=== PATIENT | female | born 1965 | race Caucasian/White ===

== ENCOUNTER 2016-06-02 06:14 | Day surgery (SDC) | payer OTHER ==
[2016-05-30 11:15] VITALS: BMI 57.1
[2016-06-02] MEDS ORDERED: BENZOCAINE SPRAY 100 APPLIC/CAN TOPICAL PRN (06:45)
[2016-06-02] MEDS ORDERED: LACTATED RINGERS 1,000 ML IV SCH (06:45)
[2016-06-02] MEDS ORDERED: DEXAMETHASONE SOD PHOSPHATE 10 MG/ML 1 ML VIAL IV ONE (06:45)
[2016-06-02] MEDS ORDERED: ONDANSETRON 4 MG/2 ML VIAL IVP ONE (06:45)
[2016-06-02] MEDS ORDERED: MIDAZOLAM 2 MG/2 ML VIAL IV PRN (06:45)
[2016-06-02] MEDS ORDERED: SCOPOLAMINE 1.5MG/72HR PATCH TRANSDERM ONE (06:45)
[2016-06-02] MEDS ORDERED: SODIUM CHLORIDE 0.9% 1,000 ML IV SCH ×2 (06:45→08:00)
[2016-06-02] MEDS ORDERED: HYDROmorphone 1 MG/ML 1 ML SYRINGE IVP PRN (06:45)
[2016-06-02] MEDS ORDERED: LIDOCAINE 1% INJ 10MG/ML (20 ML MDV) ONE (07:44)
[2016-06-02] MEDS ORDERED: PROPOFOL 10 MG/ML 20 ML VIAL IV ONE (07:44)
[2016-06-02 08:14] VITALS: RESP 16
--- NOTE | 2016-06-02 08:20 | ECHOT ---
DATE OF SERVICE: PROCEDURE: Transesophageal echocardiogram. INDICATION: Chronic persistent atrial fibrillation. PROCEDURE NOTE: After obtaining informed consent, transesophageal echocardiogram was performed in the left lateral position using an Omniplane probe. Local and IV sedation were obtained by the pipe and test supervisor. The patient's O2 saturations dropped during the procedure so obtained the minimal information we needed and took the probe out. FINDINGS: 1. There is no intracardiac thrombus within the left atrial appendage, left atrium, right atrium, left ventricle or right ventricle. 2. Left ventricle has normal size and systolic function. 3. Mitral valve shows mild to moderate central mitral regurgitation. 4. Tricuspid valve shows mild tricuspid regurgitation. 5. Aortic valve is a 3 leaflet valve. 6. Interatrial septum was not interrogated. 7. Aortic root was not well visualized. CONCLUSIONS: 1. No intracardiac thrombus. 2. Normal left ventricular function. 3. Mild to moderate mitral regurgitation. PLAN: Patient will undergo cardioversion.
--- NOTE | 2016-06-02 08:22 | CE ---
DATE OF SERVICE: CARDIOVERSION INDICATION: Persistent atrial fibrillation. PROCEDURE NOTE: After obtaining informed consent, the patient underwent electrical cardioversion with one 360 joules of synchronized DC shock. She converted to sinus rhythm and stayed in sinus rhythm. The patient has been anticoagulated with Xarelto. She is on atenolol which I am going to stop on discharge because heart rate is in the 60s. We may resume at 25 mg daily.
[2016-06-02 09:15] VITALS: PULSE 74
[2016-06-02 09:19] VITALS: BP 114/64; TEMP 98
== END 2016-06-02 09:31 | disposition home or self-care (01) ==
LOC: CATHCVL 06:14
PROVIDERS: ATTEND Internal Medicine Cardiovascular Disease
DX: I48.1 Persistent atrial fibrillation (principal); I08.1 Rheumatic disorders of both mitral and tricuspid valves; I11.0 Hypertensive heart disease with heart failure; I50.31 Acute diastolic (congestive) heart failure; Z79.01 Long term (current) use of anticoagulants; Z79.899 Other long term (current) drug therapy; Z82.49 Family history of ischemic heart disease and other diseases of the circulatory system; Z98.84 Bariatric surgery status
CPT/HCPCS: 93312; 93320; 93005; 93325; 92960; J2001; J2704; 99152

== ENCOUNTER 2016-10-10 06:13 | Day surgery (SDC) | payer OTHER ==
[2016-10-10] MEDS: SODIUM CHLORIDE 0.9% 1,000 ML IV SCH (07:35)
[2016-10-10] MEDS ORDERED: SUCCINYLCHOLINE CHLORIDE VIAL 200 MG/10 ML VIAL IV ONE (07:38)
[2016-10-10] MEDS ORDERED: ATROPINE SULFATE 0.4 MG/ML 1 ML VIAL ONE (07:38)
[2016-10-10] MEDS ORDERED: PROPOFOL 10 MG/ML 20 ML VIAL IV ONE (07:38)
[2016-10-10] MEDS ORDERED: PROTAMINE SULFATE 10 MG/ML 5 ML VIAL IV ONE ×2 (07:38→11:00)
[2016-10-10] MEDS ORDERED: fentaNYL (PF) 50 MCG/ML 2 ML AMP ONE (07:38)
[2016-10-10] MEDS ORDERED: MIDAZOLAM 2 MG/2 ML VIAL ONE (07:38)
[2016-10-10] MEDS ORDERED: PHENYLEPHRINE-0.9% NACL SYG 1 MG/10 ML SYRINGE ONE (07:38)
[2016-10-10 07:44] LABS: Calcium 9.5 mg/dL (8.4-10.2)
[2016-10-10 07:45] LABS: Basophils % (A) 1 %; CH 30.2; CHCM 34.3; Eosinophils # (A) 0.2 k/uL (0-0.7); Eosinophils % (A) 2 %; HDW 2.59; Luc # (Auto) 0.19; Luc % (Auto) 2; Lymphocytes # (A) 1.5 k/uL (1.0-4.8); Lymphocytes % (A) 18 %; MCH 30.2 pg (25.0-35.0); MCHC 34.2 g/dL (31.0-37.0); MCV 88.4 fL (80.0-100.0); Mean Platelet Volume 7.1; Monocytes # (A) 0.5 k/uL (0-1.0); Monocytes % (A) 6 %; Neutrophils # (A) 6.3 k/uL (1.3-7.7); Neutrophils % (A) 72 %; RBC 4.98 m/uL (3.80-5.40); RDW 14.6 % (11.5-15.5); WBC 8.7 k/uL (3.8-10.6); WBC (Perox) 8.63
[2016-10-10] MEDS ORDERED: LIDOCAINE 2% INJ 20 MG/ML SQ ONE (08:42)
[2016-10-10] MEDS ORDERED: HEPARIN SODIUM,PORCINE/D5W PMX 25,000 UNIT in DEXTROSE/WATER 1 500ML.BAG IV ONE (08:59)
[2016-10-10] MEDS ORDERED: IOHEXOL 350 MG/ML 100 ML BOTTLE INJ ONE (10:40)
[2016-10-10] MEDS ORDERED: ACETAMINOPHEN TAB 325 MG TAB PO PRN (11:02)
[2016-10-10] MEDS ORDERED: HYDROcodone/APAP 5-325MG 1 EACH TAB PO PRN (11:02)
[2016-10-10] MEDS ORDERED: ACETAMINOPHEN IV (For NPO) 1,000 MG/100 ML VIAL IVPB ONE (12:23)
[2016-10-10] MEDS ORDERED: BENZOCAINE/MENTHOL LOZENG 1 EACH LOZENGE MUCOUS MEM PRN (15:05)
--- NOTE | 2016-10-10 16:10 | CE ---
DATE OF SERVICE: This is a 51-year-old female with morbid obesity and persistent atrial fibrillation who has failed amiodarone who complains of tiredness and fatigue and shortness of breath on exertion. She was brought in for cryoablation. She was in A. fib at the time of the study. Patient was brought to the EP lab in a fasting state. Written informed consent was obtained prior to the procedure. Procedure is performed under general anesthesia. No muscle relaxants were given after the initial use in order to monitor phrenic nerve stimulation. The patient was prepped and draped as per protocol. A full cryo set up with standard preparation of the cryo 2 was performed. Femoral access was obtained in the right and left groins with 2 venous sheaths in the right femoral vein, 1 venous sheath in the left femoral vein. Diagnostic catheters were placed in the high right atrium in the SCC area for phrenic nerve stimulation for atrial pacing, His bundle area in the RV and coronary sinus. Later intracardiac echo catheter was placed. Long sheath was placed in the right atrium. Left and right transseptal catheterization was performed under intracardiac echo guidance. There was no intracardiac mass or thrombus. IV heparin was used. ACT maintained about 300. Later the long sheath was exchanged for the keeley sheath and balloon was placed in the left atrium. Baseline measurements were as follows: AH interval 99 ms, HV interval 60 ms, QRS 112 ms, QT 436 ms, right atrial pressure 11/9 mmHg, LA pressure 16 x 6 mmHg. Cryoablation was performed first in the left superior vein and then in the left inferior followed by the right superior and then right inferior veins. Two lesions were placed in the left superior vein for 3 minutes, each with good parameters. With the first cryo lesion -30 degrees Celsius achieved at 33 seconds, -40 degrees Celsius achieved at 57 seconds, minimal temperature achieved -47 degrees Celsius. ( ) time 10.5 seconds. Second lesion 3 minute lesion set was applied with excellent parameters and the vein was completely isolated. Next, the left inferior pulmonary vein was isolated. The first lesion for 150 seconds, the second for 180 seconds with excellent parameters including -40 degrees Celsius at 58 seconds, followed by -40 degrees Celsius at 60 seconds. The vein was completely isolated. The ( ) time was greater than 10 seconds of both freezings. The right-sided veins were then isolate sequentially, superior followed by inferior. During phrenic nerve stimulation there was no evidence of phrenic nerve injury either during or after the lesions sets. Both veins were completely isolated. Following that, entrance block was checked for all 4 pulmonary veins and all 4 pulmonary veins had complete isolation. However, the patient remained in atrial fibrillation, but there was definite organization of the tachycardia 2 about 320 to 340 ms with pulmonary vein isolation. Therefore, she underwent electrical cardioversion successfully to sinus rhythm. Sinus bradycardia was noted within 45 to 50 beats a minute. Following that, EP testing was performed, both on and off drugs. IV atropine was infused on several occasions. VA Wenckebach block greater than 700 ms, sinus node recovery times were prolonged at 1713 and 1781 ms. AV node Wenckebach block 590 ms from the coronary sinus and from the high right atrium 600 ms. Following drug infusion, the AV node Wenckebach block improved to 570 ms. No arrhythmias were induced with atrial CS pacing. At the end of the procedure the Achieve catheter was once again used to check entrance block. Stimulation was performed to confirm diaphragmatic stimulation and intact phrenic nerve was confirmed. The patient was extubated. Heparin was reversed and venous sheaths were removed. Hemostasis was assured. RESULT: 1. Successful isolation of the pulmonary veins using cryoablation with complete entrance block in all 4 veins. 2. Organization of atrial fibrillation through tachycardia cycle length of about 320-340 ms. Electrical cardioversion performed thereafter. PLAN: Reduce flecainide to 50 mg twice daily. Reduce atenolol to 12.5 mg p.o. daily. Continue anticoagulation.
--- NOTE | 2016-10-10 16:38 | LTR ---
October 10, 2016 RE: Kimberly Aguilar Patrice Dear Dr. Watson: I had the pleasure of seeing Kimberly Aguilar in electrophysiology follow-up. As you know, Kimberly has morbid obesity with persistent atrial fibrillation, which carries a low success rate for maintaining sinus rhythm. She underwent successful ablation of the pulmonary veins with organization of atrial tachycardia, organization of atrial fibrillation, extrapulmonary ablation was not performed at this time. She was electrically cardioverted, start on flecainide. I have started her on 50 mg twice daily and if she can tolerate, we will increase to 200 mg twice as long as heart rate is within normal limits. I also reduced her atenolol dose to 12.5 mg p.o. daily. She will continue anticoagulation. Thank you for entrusting me with the care of your patient. Warm regards. Sincerely, JOSEFINA MODI MD
[2016-10-10] MEDS ORDERED: ACETAMINOPHEN IV (For NPO) 1,000 MG in EMPTY BAG 1 BAG IVPB ONE (17:00)
[2016-10-10 18:50] VITALS: BMI 57.9
[2016-10-10] MEDS ORDERED: RIVAROXABAN 10 MG TAB PO SCH (21:00)
[2016-10-10] MEDS ORDERED: FLECAINIDE 50 MG TAB PO SCH (21:00)
[2016-10-11] MEDS: SODIUM CHLORIDE 0.9% 1,000 ML IV SCH (05:31)
[2016-10-11] MEDS ORDERED: ATENOLOL 12.5 MG TAB PO SCH (09:00)
[2016-10-11] MEDS ORDERED: MAGNESIUM OXIDE 400 MG TAB PO SCH (09:00)
[2016-10-11] MEDS ORDERED: LISINOPRIL 10 MG TAB PO SCH (09:00)
[2016-10-11] MEDS ORDERED: buPROPion XL 300 MG TAB.ER.24H PO SCH (09:00)
[2016-10-11] MEDS ORDERED: FUROSEMIDE 40 MG TAB PO SCH (09:00)
[2016-10-11] MEDS ORDERED: FLECAINIDE 50 MG TAB PO SCH (09:00)
--- NOTE | 2016-10-11 09:15 | PN ---
Kimberly Aguilar is a 51-year-old female with atrial fibrillation. She underwent cryoablation of the pulmonary veins followed by electrical cardioversion with organized atrial fibrillation, residual. She has already been treated with flecainide and she will continue flecainide at this time. Yesterday during the ablation, heart rate was in 40s and 50s and therefore flecainide was held. Today this morning we will start it again, but we will lower the dose of atenolol to 12.5 mg p.o. daily. She denies any chest discomfort, dizziness, lightheadedness, swallowing problems. Abdomen is soft, nontender. Heart sounds are normal. Breath sounds are normal. Vitals are stable. 111/68 mmHg. She is afebrile, 97.5 degrees Fahrenheit. IMPRESSION: 1. Persistent atrial fibrillation, status post cryoablation of the pulmonary veins. 2. Electrical cardioversion for organized atrial fibrillation, status post cardioversion. 3. Morbid obesity. SUGGEST: Continue anticoagulation. Continue flecainide 100 mg twice daily. Reduce the dose of atenolol to 12.5 mg p.o. daily and follow with Dr. Tovar in about 5 to 7 days. She will be discharged home by around 6 p.m. in the evening if she is stable.
[2016-10-11 11:51] VITALS: RESP 16
[2016-10-11 15:25] VITALS: BP 119/66; PULSE 66; TEMP 96.9
== END 2016-10-11 18:40 | disposition home or self-care (01) ==
LOC: CATHEP 06:13 → 6SEL 11:08 → CATHEP 10-11 18:40
PROVIDERS: ATTEND Internal Medicine Clinical Cardiac Electrophysiology
DX: I48.1 Persistent atrial fibrillation (principal); E66.01 Morbid (severe) obesity due to excess calories; Z68.43 Body mass index [BMI] 50.0-59.9, adult; I10 Essential (primary) hypertension; I44.30 Unspecified atrioventricular block; R94.31 Abnormal electrocardiogram [ECG] [EKG]; Z98.84 Bariatric surgery status; Z82.49 Family history of ischemic heart disease and other diseases of the circulatory system; Z79.01 Long term (current) use of anticoagulants; Z79.899 Other long term (current) drug therapy
CPT/HCPCS: 92960; 93662; 93656; 85347; 80048; 85025; C1769 ×3; C1894 ×3; C1730 ×3; C1759; C1893; C1733; C1766; J2001; J2250; J0330; J2720; J0461; Q9967; J1644; J3010; J0131; J2370; J2704

== ENCOUNTER 2017-11-16 00:03 | Emergency (ER) | payer OTHER ==
--- NOTE | 2017-11-16 11:14 | XR ---
EXAMINATION TYPE: XR chest 2V DATE OF EXAM: 11/16/2017 COMPARISON: NONE HISTORY: Shortness of breath TECHNIQUE: Frontal and lateral views of the chest are obtained. FINDINGS: Scattered senescent parenchymal changes noted. Hyperinflation compatible with COPD. No evidence for infiltrate. No evidence for atelectasis. Heart size is stable. Mediastinal structures are stable and grossly unremarkable. No evidence for hilar prominence. Degenerative changes dorsal spine. IMPRESSION: 1. No evidence for acute pulmonary disease.
--- NOTE | 2017-11-16 11:15 | XR ---
EXAMINATION TYPE: XR cervical spine comp DATE OF EXAM: 11/16/2017 CLINICAL HISTORY: pain COMPARISON: NONE TECHNIQUE: Frontal, lateral, oblique, swimmers, and open mouth view of the cervical spine are obtaine d. FINDINGS: The cervical spine is visualized in its entirety from C1 thru the top of T1 level. It is s atisfactory in alignment without evidence of acute fracture or dislocation. The pre-vertebral soft t issue appears within normal limits. Disc spaces are well preserved. The C1-C2 articulation is unremar kable on the open mouth view. The oblique images are within normal limits. IMPRESSION: No acute fracture or dislocation is seen in the cervical spine.ICD 10 NO FRACTURE, INITI AL EVALUATION
== END 2017-11-16 01:45 | disposition home or self-care (01) ==
LOC: EC 00:03
DX: S20.211A Contusion of right front wall of thorax, initial encounter (principal); M54.2 Cervicalgia; V89.2XXA Person injured in unspecified motor-vehicle accident, traffic, initial encounter
CPT/HCPCS: 71046; 72050; 99284

== ENCOUNTER 2018-07-16 19:17 | Inpatient (IN) | payer OTHER ==
[2018-07-16] MEDS ORDERED: MORPHINE SULFATE 4 MG/ML SYRINGE IVP PRN (20:48)
[2018-07-16] MEDS ORDERED: ONDANSETRON 4 MG/2 ML VIAL IVP STA (20:49)
[2018-07-16] MEDS ORDERED: SODIUM CHLORIDE 0.9% 1,000 ML IV ONE (20:49)
--- NOTE | 2018-07-16 20:53 | ED ---
Abdominal Pain HPI - General Chief Complaint: Abdominal Pain Stated Complaint: Vomiting/abd pain Time Seen by Provider: 07/16/18 20:36 Source: patient Mode of arrival: ambulatory Limitations: no limitations - History of Present Illness Initial Comments: This is a 53-year-old female who presents with a chief complaint of abdominal pain. This started at 6 AM. She has a history of a lap band. Patient cannot identify an inciting incident though she states she ate sauerkraut and divorce yesterday. Her last bowel movement was yesterday. There are no aggravating or alleviating factors. Patient says that her timing is intermittent. - Related Data Home Medications Medication Instructions Recorded Confirmed Magnesium Oxide [Mag-Ox] 250 mg PO DAILY 05/30/16 07/16/18 Lisinopril [Zestril] 10 mg PO DAILY 06/02/16 07/16/18 Atenolol [Tenormin] 12.5 mg PO DAILY 10/05/16 07/16/18 Rivaroxaban [Xarelto] 20 mg PO HS 10/05/16 07/16/18 buPROPion HCL [Wellbutrin XL] 300 mg PO DAILY 10/05/16 07/16/18 Fluticasone Nasal Mobile [Flonase 1 spray EA NOSTRIL DAILY PRN 07/16/18 07/16/18 Nasal Mobile] Ibuprofen [Advil] 200 mg PO Q6HR PRN 07/16/18 07/16/18 Loratadine [Claritin] 10 mg PO DAILY PRN 07/16/18 07/16/18 Multivitamins, Thera [Multivitamin 1 tab PO DAILY 07/16/18 07/16/18 (formulary)] Previous Rx's Medication Instructions Recorded Furosemide [Lasix] 40 mg PO DAILY #30 tablet 04/16/16 Potassium Chloride ER [K-Dur 10] 10 meq PO DAILY #30 tab 04/16/16 Allergies Allergy/AdvReac Type Severity Reaction Status Date / Time No Known Allergies Allergy Verified 07/16/18 22:05 Review of Systems ROS Statement: Those systems with pertinent positive or pertinent negative responses have been documented in the HPI. ROS Other: All systems not noted in ROS Statement are negative. Gastrointestinal: Reports: abdominal pain, nausea Past Medical History Past Medical History: Atrial Fibrillation, Hypertension, Thyroid Disorder Additional Past Medical History / Comment(s): STATES SOB., LAP BAND., SEE CARDIOLOGY H & P. History of Any Multi-Drug Resistant Organisms: None Reported Past Surgical History: Bariatric Surgery, Cholecystectomy, Orthopedic Surgery Additional Past Surgical History / Comment(s): Left ankle tendon and fusion; Left knee arthroscopy; ectopic - left ovary removed, LAP BAND (2003), right ankle surgery Past Anesthesia/Blood Transfusion Reactions: No Reported Reaction Past Psychological History: No Psychological Hx Reported Smoking Status: Never smoker Past Alcohol Use History: None Reported Past Drug Use History: None Reported - Past Family History Mother Family Medical History: No Reported History General Exam Limitations: no limitations General appearance: alert, in no apparent distress Head exam: Present: atraumatic, normocephalic Eye exam: Present: normal appearance ENT exam: Present: normal exam Neck exam: Present: normal inspection Respiratory exam: Present: normal lung sounds bilaterally. Absent: respiratory distress, wheezes Cardiovascular Exam: Present: regular rate, normal rhythm GI/Abdominal exam: Present: soft, tenderness (Tenderness to palpation along the left side of the abdomen.). Absent: distended Rectal exam: Present: deferred Extremities exam: Present: normal inspection Back exam: Present: normal inspection Neurological exam: Present: alert, oriented X3 Psychiatric exam: Present: normal affect, normal mood Skin exam: Present: warm, dry, intact Course Vital Signs 07/16/18 07/16/18 07/16/18 19:50 21:37 22:36 Temperature 98.5 F Pulse Rate 74 71 69 Respiratory 16 18 18 Rate Blood Pressure 134/76 133/91 133/91 O2 Sat by Pulse 95 99 95 Oximetry Medical Decision Making - Medical Decision Making Patient presents with a chief complaint of abdominal pain. On initial evaluation, vitals are stable, patient is in no acute distress. Patient reevaluated at 11 including liver profile and lipase. She'll be sent for a computed tomography scan of the abdomen and pelvis with IV contrast. 10:48 PM Laboratory evaluation this patient grossly unremarkable, lactate is negative. A computed tomography scan of the abdomen and pelvis shows a small bowel obstruction with transition point in the mid lower abdomen. The results were discussed with the patient, she is agreeable to an NG tube and admission. Case discussed with Dr. Oseguera who agrees to admit this patient primarily. At this time, radiology images aren't available to myself, official interpretation by radiologist was faxed, and placed on the chart. - Lab Data Result diagrams: 07/16/18 21:44 07/16/18 21:44 Lab Results 07/16/18 07/16/18 07/16/18 Range/Units 21:44 21:44 21:44 WBC 10.4 (3.8-10.6) k/uL RBC 5.35 (3.80-5.40) m/uL Hgb 14.6 (11.4-16.0) gm/dL Hct 46.3 H (34.0-46.0) % MCV 86.4 (80.0-100.0) fL MCH 27.2 (25.0-35.0) pg MCHC 31.5 (31.0-37.0) g/dL RDW 14.2 (11.5-15.5) % Plt Count 232 (150-450) k/uL Neutrophils % 87 % Lymphocytes % 8 % Monocytes % 3 % Eosinophils % 2 % Basophils % 0 % Neutrophils # 9.1 H (1.3-7.7) k/uL Lymphocytes # 0.8 L (1.0-4.8) k/uL Monocytes # 0.3 (0-1.0) k/uL Eosinophils # 0.2 (0-0.7) k/uL Basophils # 0.1 (0-0.2) k/uL Sodium 138 (137-145) mmol/L Potassium 4.6 (3.5-5.1) mmol/L Chloride 106 (98-107) mmol/L Carbon Dioxide 24 (22-30) mmol/L Anion Gap 8 mmol/L BUN 23 H (7-17) mg/dL Creatinine 0.84 (0.52-1.04) mg/dL Est GFR (CKD-EPI)AfAm >90 (>60 ml/min/1.73 sqM) Est GFR (CKD-EPI)NonAf 78 (>60 ml/min/1.73 sqM) Glucose 137 H (74-99) mg/dL Plasma Lactic Acid Collin 1.1 (0.7-2.0) mmol/L Calcium 10.3 H (8.4-10.2) mg/dL Total Bilirubin 0.9 (0.2-1.3) mg/dL AST 23 (14-36) U/L ALT 20 (9-52) U/L Alkaline Phosphatase 113 (38-126) U/L Total Protein 7.2 (6.3-8.2) g/dL Albumin 4.2 (3.5-5.0) g/dL Lipase 45 (23-300) U/L Disposition Clinical Impression: Small bowel obstruction Disposition: ADMITTED IP TO THIS [facility] Condition: Good Is patient prescribed a controlled substance at d/c from ED?: No Referrals: Leia Winters MD [Primary Care Provider] - 1-2 days Decision to Admit Reason: Admit from EC - Out of Hospital Transfer - Req. Specs Out of Hospital Transfer - Requested Specifics: Other Non-Acute
--- NOTE | 2018-07-16 21:52 | XR ---
EXAMINATION TYPE: XR abdomen acute w cxr, 4 views DATE OF EXAM: 07/16/2018 COMPARISON: NONE HISTORY: Pain TECHNIQUE: 4V FINDINGS: Partial left lower lobe airlessness noted, partially silhouetting the left hemidiaphragm; atelectasis versus bronchopneumonia can be delineated clinically. There is no evidence for pneumoperitoneum. The bowel gas pattern is unremarkable as there is air throughout nondilated small and large bowel. G astric banding and catheter appear intact. No sizeable air fluid levels. No mass effects are seen. No unusual calcifications. IMPRESSION: 1. No acute abdominopelvic process. 2. Mild partial left lower lobe airlessness.
[2018-07-16 21:55] LABS: Basophils # (A) 0.1 k/uL (0-0.2); Basophils % (A) 0 %; Eosinophils # (A) 0.2 k/uL (0-0.7); Eosinophils % (A) 2 %; HCT 46.3 % (34.0-46.0); HGB 14.6 gm/dL (11.4-16.0); Lymphocytes # (A) 0.8 k/uL (1.0-4.8); Lymphocytes % (A) 8 %; MCH 27.2 pg (25.0-35.0); MCHC 31.5 g/dL (31.0-37.0); MCV 86.4 fL (80.0-100.0); Mean Platelet Volume 6.8; Monocytes # (A) 0.3 k/uL (0-1.0); Monocytes % (A) 3 %; Neutrophils # (A) 9.1 k/uL (1.3-7.7); Neutrophils % (A) 87 %; Platelet Count 232 k/uL (150-450); RBC 5.35 m/uL (3.80-5.40); RDW 14.2 % (11.5-15.5); WBC 10.4 k/uL (3.8-10.6)
[2018-07-16 22:03] LABS: ALT 20 U/L (9-52); AST 23 U/L (14-36); Albumin 4.2 g/dL (3.5-5.0); Alkaline Phosphatase 113 U/L (38-126); Anion Gap 8 mmol/L; Blood Urea Nitrogen 23 mg/dL (7-17); Calcium 10.3 mg/dL (8.4-10.2); Carbon Dioxide 24 mmol/L (22-30); Chloride 106 mmol/L (98-107); Glucose 137 mg/dL (74-99); Lipase 45 U/L (23-300); Potassium 4.6 mmol/L (3.5-5.1); Sodium 138 mmol/L (137-145); Total Bilirubin 0.9 mg/dL (0.2-1.3); Total Protein 7.2 g/dL (6.3-8.2)
[2018-07-16] MEDS ORDERED: NALOXONE 0.4 MG/ML 1 ML VIAL IV PRN (22:49)
[2018-07-16] MEDS ORDERED: HYDROmorphone 1 MG/ML 1 ML SYRINGE IVP PRN (22:49)
[2018-07-16] MEDS ORDERED: SODIUM CHLORIDE 0.9% 1,000 ML IV SCH (23:00)
[2018-07-17 04:15] LABS: Glucose,Whole Blood 116 mg/dL (75-99)
[2018-07-17] MEDS ORDERED: ACETAMINOPHEN IV (For NPO) 1,000 MG in EMPTY BAG 1 BAG IVPB PRN (06:30)
--- NOTE | 2018-07-17 07:19 | XR ---
EXAMINATION TYPE: XR chest 1V portable DATE OF EXAM: 07/17/2018 CLINICAL HISTORY: OG tube placement. TECHNIQUE: Single AP portable upright view of the chest is obtained. COMPARISON: Chest x-ray and CT abdomen and pelvis from earlier today. FINDINGS: There is new orogastric tube with coiling in the distal esophagus and termination near mil phragmatic hiatus before lap band device. There is persistent somewhat low lung volumes with patchy l eft greater than right bibasilar linear atelectasis. No pleural effusion or pneumothorax is evident. Cardiac silhouette size is stable and within normal limits. Osseous structures are intact. IMPRESSION: New orogastric tube shows coiling with tip near diaphragmatic hiatus near gastroesophagea l junction short of lap band device below diaphragm. Advise repositioning. Preliminary report was provided by [employer] [facility].
[2018-07-17 07:46] VITALS: BP 121/72; PULSE 73; RESP 14; TEMP 98.5
--- NOTE | 2018-07-17 07:46 | CT ---
EXAMINATION TYPE: CT abdomen pelvis wo con DATE OF EXAM: 07/16/2018 HISTORY: Abdominal and flank pain CT DLP: 2107.8 mGycm. Automated Exposure Control for Dose Reduction was Utilized. TECHNIQUE: CT scan of the abdomen and pelvis is performed without oral or IV contrast. COMPARISON: NONE FINDINGS: Within the limitations of a non-contrast study, the following observations are made. LUNG BASES: There is some dependent and linear atelectasis in both bases. LIVER/GB: Cholecystectomy clips are seen. PANCREAS: No significant abnormality is seen. SPLEEN: No significant abnormality is seen. ADRENALS: No significant abnormality is seen. KIDNEYS: No renal stones or hydronephrosis is present bilaterally. BOWEL: Evaluation of bowel is suboptimal secondary to lack of enteric contrast. There is LAP-BAND dev ice spelled satisfactory in position just below diaphragm. There is fluid-filled stomach distal to th e LAP-BAND which is prominent. There is fluid prominent duodenal sweep up to ligament of Treitz where there are then dilated fluid-filled small bowel or jejunal loops occupying left and midabdomen, ther e is swirling pattern noted on coronal images. There are nondilated ileal loops in the right lower qu adrant. Fecal material is seen in nondistended colon. There is mild to moderate mesenteric edema or v asa engorgement for reference coronal image 42. No pneumatosis or free air is seen. Transition point not definitively identified. GENITAL ORGANS: No gross abnormality seen. LYMPH NODES: No greater than 1cm abdominal or pelvic lymph nodes are appreciated. OSSEOUS STRUCTURES: No significant abnormality is seen. OTHER: No significant additional abnormality is seen. IMPRESSION: A developing mid small bowel obstruction likely near the jejunoileal transition is felt p resent. Preliminary report for study was provided by [email or web address].
[2018-07-17] MEDS ORDERED: IOPAMIDOL-300 CONTRAST 30 ML VIAL (ORAL USE) PO PRN (08:10)
[2018-07-17 08:42] LABS: Basophils % (A) 1 %; Eosinophils # (A) 0.1 k/uL (0-0.7); Eosinophils % (A) 1 %; HCT 40.3 % (34.0-46.0); HGB 12.6 gm/dL (11.4-16.0); Lymphocytes # (A) 1.2 k/uL (1.0-4.8); Lymphocytes % (A) 15 %; MCH 27.3 pg (25.0-35.0); MCHC 31.3 g/dL (31.0-37.0); MCV 87.3 fL (80.0-100.0); Monocytes # (A) 0.5 k/uL (0-1.0); Monocytes % (A) 7 %; Neutrophils # (A) 5.9 k/uL (1.3-7.7); Neutrophils % (A) 75 %; Platelet Count 240 k/uL (150-450); RBC 4.62 m/uL (3.80-5.40); RDW 14.3 % (11.5-15.5)
[2018-07-17 08:57] LABS: ALT 34 U/L (9-52); AST 24 U/L (14-36); Albumin 3.3 g/dL (3.5-5.0); Alkaline Phosphatase 79 U/L (38-126); Anion Gap 7 mmol/L; Blood Urea Nitrogen 20 mg/dL (7-17); Calcium 8.8 mg/dL (8.4-10.2); Carbon Dioxide 23 mmol/L (22-30); Chloride 109 mmol/L (98-107); Glucose 97 mg/dL (74-99); Magnesium 1.9 mg/dL (1.6-2.3); Phosphorus 4.4 mg/dL (2.5-4.5); Potassium 4.2 mmol/L (3.5-5.1); Sodium 139 mmol/L (137-145); Total Bilirubin 0.7 mg/dL (0.2-1.3)
[2018-07-17] MEDS ORDERED: PANTOPRAZOLE 40 MG/10 ML VIAL IV SCH (09:00)
[2018-07-17 09:59] LABS: Glucose,Whole Blood 92 mg/dL (75-99)
--- NOTE | 2018-07-17 11:37 | CT ---
EXAMINATION TYPE: CT abdomen pelvis wo con DATE OF EXAM: 07/17/2018 HISTORY: Small bowel obstruction. Recent abnormal CT. CT DLP: 1609.4 mGycm. Automated Exposure Control for Dose Reduction was Utilized. TECHNIQUE: CT scan of the abdomen and pelvis is performed with oral but without IV contrast. COMPARISON: CT abdomen and pelvis from yesterday FINDINGS: Within the limitations of a non-contrast study, the following observations are made. Exam noted suboptimal secondary to patient's large body habitus LUNG BASES: Increasing atelectatic change and/or dependent consolidation in both bases is present mos t prominent posteriorly. LIVER/GB: Cholecystectomy clips are redemonstrated. PANCREAS: Mild fatty-replaced atrophy of the pancreatic head and uncinate process is redemonstrated. SPLEEN: No significant abnormality is seen. ADRENALS: No significant abnormality is seen. KIDNEYS: No significant abnormality is seen. BOWEL: On current study there is new nasogastric tube which shows coiling in the distal esophagus and terminates just above the diaphragmatic hiatus similar to most recent chest x-ray. Visualized portio n of the esophagus is dilated and contrast-filled. There is lap band device epigastric region felt sa tisfactory in position. There is successful interval decompression of stomach. There is marked interv al improvement in duodenal sweep dilatation. On current study oral contrast reaches proximal ileal lo ops in the lower abdomen and pelvis. There is marked interval improvement in fluid filled and dilated jejunal loops in the left abdomen. Fecal material is seen in nondistended colon. Some diverticula in the sigmoid colon are redemonstrated. Some contrast and noncontrast filled small bowel loops in the left mid to lower abdomen remain slightly prominent but not greater than 3 cm dilated on current stud y. Mild mesenteric edema or vasa engorgement left lower quadrant coronal image 48 remains present and improved from prior. GENITAL ORGANS: No gross abnormality seen. LYMPH NODES: No greater than 1cm abdominal or pelvic lymph nodes are appreciated. OSSEOUS STRUCTURES: No significant abnormality is seen. OTHER: Tiny fat-containing umbilical hernia axial image 59 is redemonstrated. IMPRESSION: Marked interval improvement in stomach and proximal small bowel dilatation after nasogast pablito tube placement. Findings suggest resolving partial mid small bowel obstruction.
[2018-07-17] MEDS ORDERED: RIVAROXABAN 20 MG TAB PO ONE (12:57)
[2018-07-17] MEDS ORDERED: LISINOPRIL 10 MG TAB PO SCH (13:00)
[2018-07-17] MEDS ORDERED: ATENOLOL 12.5 MG TAB PO SCH (13:00)
--- NOTE | 2018-07-17 13:10 | P.GSCN ---
History of Present Illness History of present illness: This document serves as H&P and discharge summary 53-year-old female who presented to the emergency room with a one-day duration of abdominal pain. Pain was generalized over all 4 quadrants. She reports eating Sausage and sauerkraut 2 days ago. She reports having a bowel movement the following morning. No bowel movement since then. Patient is passing flatus this morning. Patient reports some nausea and vomiting at home which has since resolved. NG tube was inserted with bilious drainage. Patient underwent CT abdomen and pelvis which suggest resolving partial mid small bowel obstruction. Patient will have NG tube discontinued and started on clear liquid diet. Patient stable for discharge home this afternoon if she tolerates diet. She is to follow up with Dr. Oseguera on an outpatient basis. Please see EMR for further hospital course details. Discharge diagnosis: 1. Small bowel obstruction, resolved Nurse practitioner note has been reviewed by physician. Signing provider agrees with the documented findings, assessment, and plan of care. Past Medical History Past Medical History: Atrial Fibrillation, Hypertension, Thyroid Disorder Additional Past Medical History / Comment(s): STATES SOB., LAP BAND., SEE CARDIOLOGY H & P. History of Any Multi-Drug Resistant Organisms: None Reported Past Surgical History: Bariatric Surgery, Cholecystectomy, Orthopedic Surgery Additional Past Surgical History / Comment(s): Left ankle tendon and fusion; Left knee arthroscopy; ectopic - left ovary removed, LAP BAND (2003), right ankle surgery (fusion) Past Anesthesia/Blood Transfusion Reactions: No Reported Reaction Past Psychological History: No Psychological Hx Reported Additional Psychological History / Comment(s): on welbutrin to help with food thoughts Smoking Status: Never smoker Past Alcohol Use History: None Reported Past Drug Use History: None Reported - Past Family History Mother Family Medical History: No Reported History Medications and Allergies Home Medications Medication Instructions Recorded Confirmed Type Furosemide [Lasix] 40 mg PO DAILY #30 tablet 04/16/16 07/16/18 Rx Potassium Chloride ER [K-Dur 10] 10 meq PO DAILY #30 tab 04/16/16 07/16/18 Rx Magnesium Oxide [Mag-Ox] 250 mg PO DAILY 05/30/16 07/16/18 History Lisinopril [Zestril] 10 mg PO DAILY 06/02/16 07/16/18 History Atenolol [Tenormin] 12.5 mg PO DAILY 10/05/16 07/16/18 History Rivaroxaban [Xarelto] 20 mg PO HS 10/05/16 07/16/18 History buPROPion HCL [Wellbutrin XL] 300 mg PO DAILY 10/05/16 07/16/18 History Fluticasone Nasal [place] [Flonase 1 spray EA NOSTRIL DAILY PRN 07/16/18 07/16/18 History Nasal [place]] Ibuprofen [Advil] 200 mg PO Q6HR PRN 07/16/18 07/16/18 History Loratadine [Claritin] 10 mg PO DAILY PRN 07/16/18 07/16/18 History Multivitamins, Thera [Multivitamin 1 tab PO DAILY 07/16/18 07/16/18 History (formulary)] Allergies Allergy/AdvReac Type Severity Reaction Status Date / Time No Known Allergies Allergy Verified 07/16/18 22:05 Surgical - Exam Vital Signs Temp Pulse Resp BP Pulse Ox 98.5 F 74 16 134/76 95 07/16/18 19:50 07/16/18 19:50 07/16/18 19:50 07/16/18 19:50 07/16/18 19:50 Results - Labs 07/17/18 07:44 07/17/18 07:44 Abnormal Lab Results - Last 24 Hours (Table) 07/16/18 07/16/18 07/17/18 Range/Units 21:44 21:44 04:12 Hct 46.3 H (34.0-46.0) % Neutrophils # 9.1 H (1.3-7.7) k/uL Lymphocytes # 0.8 L (1.0-4.8) k/uL Chloride (98-107) mmol/L BUN 23 H (7-17) mg/dL Glucose 137 H (74-99) mg/dL POC Glucose (mg/dL) 116 H (75-99) mg/dL Calcium 10.3 H (8.4-10.2) mg/dL Total Protein (6.3-8.2) g/dL Albumin (3.5-5.0) g/dL 07/17/18 Range/Units 07:44 Hct (34.0-46.0) % Neutrophils # (1.3-7.7) k/uL Lymphocytes # (1.0-4.8) k/uL Chloride 109 H (98-107) mmol/L BUN 20 H (7-17) mg/dL Glucose (74-99) mg/dL POC Glucose (mg/dL) (75-99) mg/dL Calcium (8.4-10.2) mg/dL Total Protein 6.0 L (6.3-8.2) g/dL Albumin 3.3 L (3.5-5.0) g/dL Diabetes panel 07/16/18 07/17/18 Range/Units 21:44 07:44 Sodium 138 139 (137-145) mmol/L Potassium 4.6 4.2 (3.5-5.1) mmol/L Chloride 106 109 H (98-107) mmol/L Carbon Dioxide 24 23 (22-30) mmol/L BUN 23 H 20 H (7-17) mg/dL Creatinine 0.84 0.82 (0.52-1.04) mg/dL Glucose 137 H 97 (74-99) mg/dL Calcium 10.3 H 8.8 (8.4-10.2) mg/dL AST 23 24 (14-36) U/L ALT 20 34 (9-52) U/L Alkaline Phosphatase 113 79 (38-126) U/L Total Protein 7.2 6.0 L (6.3-8.2) g/dL Albumin 4.2 3.3 L (3.5-5.0) g/dL Calcium panel 07/16/18 07/17/18 Range/Units 21:44 07:44 Calcium 10.3 H 8.8 (8.4-10.2) mg/dL Phosphorus 4.4 (2.5-4.5) mg/dL Albumin 4.2 3.3 L (3.5-5.0) g/dL Pituitary panel 07/16/18 07/17/18 Range/Units 21:44 07:44 Sodium 138 139 (137-145) mmol/L Potassium 4.6 4.2 (3.5-5.1) mmol/L Chloride 106 109 H (98-107) mmol/L Carbon Dioxide 24 23 (22-30) mmol/L BUN 23 H 20 H (7-17) mg/dL Creatinine 0.84 0.82 (0.52-1.04) mg/dL Glucose 137 H 97 (74-99) mg/dL Calcium 10.3 H 8.8 (8.4-10.2) mg/dL Adrenal panel 07/16/18 07/17/18 Range/Units 21:44 07:44 Sodium 138 139 (137-145) mmol/L Potassium 4.6 4.2 (3.5-5.1) mmol/L Chloride 106 109 H (98-107) mmol/L Carbon Dioxide 24 23 (22-30) mmol/L BUN 23 H 20 H (7-17) mg/dL Creatinine 0.84 0.82 (0.52-1.04) mg/dL Glucose 137 H 97 (74-99) mg/dL Calcium 10.3 H 8.8 (8.4-10.2) mg/dL Total Bilirubin 0.9 0.7 (0.2-1.3) mg/dL AST 23 24 (14-36) U/L ALT 20 34 (9-52) U/L Alkaline Phosphatase 113 79 (38-126) U/L Total Protein 7.2 6.0 L (6.3-8.2) g/dL Albumin 4.2 3.3 L (3.5-5.0) g/dL
[2018-07-18] MEDS ORDERED: PANTOPRAZOLE 40 MG TABLET PO SCH (09:00)
== END 2018-07-17 15:45 | disposition home or self-care (01) | DRG 390 ==
LOC: EC 19:17 → 4SSUR 22:52
PROVIDERS: ADMIT Surgery; ATTEND Surgery
DX: K56.600 Partial intestinal obstruction, unspecified as to cause (principal); I10 Essential (primary) hypertension; I48.91 Unspecified atrial fibrillation; Z79.01 Long term (current) use of anticoagulants; Z79.899 Other long term (current) drug therapy; Z90.721 Acquired absence of ovaries, unilateral; Z98.84 Bariatric surgery status; Z98.1 Arthrodesis status; E07.9 Disorder of thyroid, unspecified; Z90.49 Acquired absence of other specified parts of digestive tract
CPT/HCPCS: 36415; 71045; 74018; 74022; 74176; 80053; 83605; 83690; 83735; 84100; 85025; 96361; 96374; 96375; 99285

== ENCOUNTER 2022-03-02 10:57 | Emergency (ER) | payer OTHER ==
[2022-03-02 11:26] VITALS: RESP 20; TEMP 98.2
[2022-03-02 12:02] LABS: Basophils # (A) 0.1 k/uL (0-0.2); Basophils % (A) 2 %; Eosinophils % (A) 1 %; HGB 14.4 gm/dL (11.4-16.0); Lymphocytes # (A) 1.1 k/uL (1.0-4.8); Lymphocytes % (A) 32 %; MCH 28.8 pg (25.0-35.0); MCHC 33.5 g/dL (31.0-37.0); Mean Platelet Volume 7.7; Monocytes # (A) 0.5 k/uL (0-1.0); Monocytes % (A) 15 %; Neutrophils # (A) 1.5 k/uL (1.3-7.7); Neutrophils % (A) 46 %; Platelet Count 193 k/uL (150-450); RDW 13.5 % (11.5-15.5); WBC 3.3 k/uL (3.8-10.6)
[2022-03-02 12:25] LABS: Partial Thromboplastin Time 26.1 sec (22.0-30.0); Prothrombin Time 10.9 sec (9.0-12.0)
[2022-03-02 12:30] LABS: Albumin 4.1 g/dL (3.5-5.0); Calcium 8.9 mg/dL (8.4-10.2); Potassium 4.4 mmol/L (3.5-5.1); Total Bilirubin 0.6 mg/dL (0.2-1.3)
--- NOTE | 2022-03-02 12:37 | ED ---
General Adult HPI - General Chief complaint: Shortness of Breath Stated complaint: COVID+ Time Seen by Provider: 03/02/22 11:35 Source: patient, RN notes reviewed, old records reviewed Mode of arrival: ambulatory Limitations: no limitations - History of Present Illness Initial comments: This is a 56-year-old female presents emergency Department complaining that she has COVID. Patient states symptoms started 3 days ago. Patient states she still has a dry cough and a little bit of shortness of breath. Patient states she went to the urgent care and they told her to come emergency department to be evaluated. Patient states she is on Xarelto for atrial fibrillation. Patient does not want any big workup because she feels like this is just part of COVID and would like to just go home. Patient does not want a workup for a blood clot. Patient does not want any medications for the COVID. Patient states she is satisfied she gets a chest x-ray to prove that she does not have pneumonia and she will return if there is any more difficulty breathing. Patient denies any abdominal pain patient denies nausea vomiting. Patient denies any lighthead edness or dizziness. - Related Data Home Medications Medication Instructions Recorded Confirmed Magnesium Oxide [Mag-Ox] 250 mg PO DAILY 05/30/16 07/16/18 lisinopriL [Zestril] 10 mg PO DAILY 06/02/16 07/16/18 Rivaroxaban [Xarelto] 20 mg PO HS 10/05/16 07/16/18 atenoloL [Tenormin] 12.5 mg PO DAILY 10/05/16 07/16/18 buPROPion HCL [Wellbutrin XL] 300 mg PO DAILY 10/05/16 07/16/18 Fluticasone Nasal [place] [Flonase 1 spray EA NOSTRIL DAILY PRN 07/16/18 07/16/18 Nasal [place]] Ibuprofen [Advil] 200 mg PO Q6HR PRN 07/16/18 07/16/18 Loratadine [Claritin] 10 mg PO DAILY PRN 07/16/18 07/16/18 Multivitamins, Thera [Multivitamin 1 tab PO DAILY 07/16/18 07/16/18 (formulary)] Previous Rx's Medication Instructions Recorded Furosemide [Lasix] 40 mg PO DAILY #30 tablet 04/16/16 Potassium Chloride ER [K-Dur 10] 10 meq PO DAILY #30 tab 04/16/16 Allergies Allergy/AdvReac Type Severity Reaction Status Date / Time No Known Allergies Allergy Verified 03/02/22 11:26 Review of Systems ROS Statement: Those systems with pertinent positive or pertinent negative responses have been documented in the HPI. ROS Other: All systems not noted in ROS Statement are negative. Past Medical History Past Medical History: Atrial Fibrillation, Hypertension, Thyroid Disorder Additional Past Medical History / Comment(s): STATES SOB., LAP BAND., SEE CARDIOLOGY H & P. History of Any Multi-Drug Resistant Organisms: None Reported Past Surgical History: Bariatric Surgery, Cholecystectomy, Orthopedic Surgery Additional Past Surgical History / Comment(s): Left ankle tendon and fusion; Left knee arthroscopy; ectopic - left ovary removed, LAP BAND (2003), right ankle surgery (fusion) Past Anesthesia/Blood Transfusion Reactions: No Reported Reaction Past Psychological History: No Psychological Hx Reported Past Alcohol Use History: None Reported Past Drug Use History: None Reported - Past Family History Mother Family Medical History: No Reported History General Exam - General Exam Comments Initial Comments: GENERAL: Patient is well-developed and well-nourished. Patient is nontoxic and well- hydrated and is in mild distress. ENT: Neck is soft and supple. No significant lymphadenopathy is noted. Oropharynx is clear. Moist mucous membranes. Neck has full range of motion without eliciting any pain. EYES: The sclera were anicteric and conjunctiva were pink and moist. Extraocular movements were intact and pupils were equal round and reactive to light. Eyelids were unremarkable. PULMONARY: Unlabored respirations. Good breath sounds bilaterally. No audible rales rhonchi or wheezing was noted. CARDIOVASCULAR: There is a regular rate and rhythm without any murmurs gallops or rubs. ABDOMEN: Soft and nontender with normal bowel sounds. SKIN: Skin is clear with no lesions or rashes and otherwise unremarkable. NEUROLOGIC: Patient is alert and oriented x3. Cranial nerves II through XII are grossly intact. Motor and sensory are also intact. Normal speech, volume and content. Symmetrical smile. MUSCULOSKELETAL: Normal extremities with adequate strength and full range of motion. No lower extremity swelling or edema. No calf tenderness. LYMPHATICS: No significant lymphadenopathy is noted PSYCHIATRIC: Normal psychiatric evaluation. Limitations: no limitations Course Vital Signs 03/02/22 03/02/22 11:24 11:49 Temperature 98.2 F Pulse Rate 99 88 Respiratory 20 20 Rate Blood Pressure 148/92 148/68 O2 Sat by Pulse 98 96 Oximetry Medical Decision Making - Medical Decision Making EKG was interpreted by me. EKG shows sinus rhythm at 65 bpm RI interval 181 dresses 96 QT interval 360 QTC is 379. Patient's EKG shows no ST segment elevation or depression. Chest x-ray was interpreted by me. Chest x-ray showed no infiltrate. There is a small pleural effusion on the left. Patient was in no distress patient wanted to be discharged without any medications for COVID and let the virus run its course. - Lab Data Result diagrams: 03/02/22 11:48 03/02/22 11:48 Lab Results 03/02/22 03/02/22 03/02/22 Range/Units 11:48 11:48 11:48 WBC 3.3 L (3.8-10.6) k/uL RBC 5.00 (3.80-5.40) m/uL Hgb 14.4 (11.4-16.0) gm/dL Hct 43.0 (34.0-46.0) % MCV 86.0 (80.0-100.0) fL MCH 28.8 (25.0-35.0) pg MCHC 33.5 (31.0-37.0) g/dL RDW 13.5 (11.5-15.5) % Plt Count 193 (150-450) k/uL MPV 7.7 Neutrophils % 46 % Lymphocytes % 32 % Monocytes % 15 % Eosinophils % 1 % Basophils % 2 % Neutrophils # 1.5 (1.3-7.7) k/uL Lymphocytes # 1.1 (1.0-4.8) k/uL Monocytes # 0.5 (0-1.0) k/uL Eosinophils # 0.0 (0-0.7) k/uL Basophils # 0.1 (0-0.2) k/uL PT 10.9 (9.0-12.0) sec INR 1.0 (<1.2) APTT 26.1 (22.0-30.0) sec Sodium 139 (137-145) mmol/L Potassium 4.4 (3.5-5.1) mmol/L Chloride 102 (98-107) mmol/L Carbon Dioxide 25 (22-30) mmol/L Anion Gap 12 mmol/L BUN 14 (7-17) mg/dL Creatinine 0.93 (0.52-1.04) mg/dL Est GFR (CKD-EPI)AfAm 79 (>60 ml/min/1.73 sqM) Est GFR (CKD-EPI)NonAf 68 (>60 ml/min/1.73 sqM) Glucose 102 H (74-99) mg/dL Calcium 8.9 (8.4-10.2) mg/dL Total Bilirubin 0.6 (0.2-1.3) mg/dL AST 31 (14-36) U/L ALT 25 (4-34) U/L Alkaline Phosphatase 95 (38-126) U/L Troponin I (0.000-0.034) ng/mL Total Protein 7.0 (6.3-8.2) g/dL Albumin 4.1 (3.5-5.0) g/dL 03/02/22 Range/Units 11:48 WBC (3.8-10.6) k/uL RBC (3.80-5.40) m/uL Hgb (11.4-16.0) gm/dL Hct (34.0-46.0) % MCV (80.0-100.0) fL MCH (25.0-35.0) pg MCHC (31.0-37.0) g/dL RDW (11.5-15.5) % Plt Count (150-450) k/uL MPV Neutrophils % % Lymphocytes % % Monocytes % % Eosinophils % % Basophils % % Neutrophils # (1.3-7.7) k/uL Lymphocytes # (1.0-4.8) k/uL Monocytes # (0-1.0) k/uL Eosinophils # (0-0.7) k/uL Basophils # (0-0.2) k/uL PT (9.0-12.0) sec INR (<1.2) APTT (22.0-30.0) sec Sodium (137-145) mmol/L Potassium (3.5-5.1) mmol/L Chloride (98-107) mmol/L Carbon Dioxide (22-30) mmol/L Anion Gap mmol/L BUN (7-17) mg/dL Creatinine (0.52-1.04) mg/dL Est GFR (CKD-EPI)AfAm (>60 ml/min/1.73 sqM) Est GFR (CKD-EPI)NonAf (>60 ml/min/1.73 sqM) Glucose (74-99) mg/dL Calcium (8.4-10.2) mg/dL Total Bilirubin (0.2-1.3) mg/dL AST (14-36) U/L ALT (4-34) U/L Alkaline Phosphatase (38-126) U/L Troponin I <0.012 (0.000-0.034) ng/mL Total Protein (6.3-8.2) g/dL Albumin (3.5-5.0) g/dL Disposition Clinical Impression: COVID-19 Disposition: HOME SELF-CARE Instructions (If sedation given, give patient instructions): COVID-19 (Coronavirus Disease 2019) (ED) Is patient prescribed a controlled substance at d/c from ED?: No Referrals: Leia Winters MD [Primary Care Provider] - 1-2 days Time of Disposition: 13:41
--- NOTE | 2022-03-02 13:35 | XR ---
EXAMINATION TYPE: XR chest 2V DATE OF EXAM: 03/02/2022 COMPARISON: 07/16/2018 INDICATION: Difficulty breathing, covid TECHNIQUE: Frontal and lateral views of the chest are obtained. FINDINGS: The heart size is normal. The pulmonary vasculature is normal. Some minimal platelike atelectasis may be within the left lower lung field. Lungs otherwise appear cl ear. Posterior pleural effusion may be present. IMPRESSION: 1. Suggestion of minimal platelike atelectasis within the left lung base. 2. Small posterior pleural effusion
[2022-03-02 14:21] VITALS: BP 140/60; PULSE 78
== END 2022-03-02 14:21 | disposition home or self-care (01) ==
LOC: EC 10:57
DX: U07.1 COVID-19 (principal); I10 Essential (primary) hypertension; E07.9 Disorder of thyroid, unspecified; I48.91 Unspecified atrial fibrillation
CPT/HCPCS: 36415; 71046; 80053; 84484; 85025; 85610; 85730; 93005; 99284